=== PATIENT | male | born 1945 | race Caucasian/White ===

== ENCOUNTER 2018-10-18 14:51 | Inpatient (IN) | payer OTHER ==
[2018-10-18 16:08] VITALS: BMI 32.4
--- NOTE | 2018-10-18 16:55 | HP ---
COWS - Scale Resting Pulse: 0= [place] 80 or Below Sweatin=Flushed/Facial Moisture Restless Observation: 3= Extraneous Movement Pupil Size: 0= Normal to Room Light Bone or Joint Aches: 1= Mild Discomfort Runny Nose/ Eye Tearin= None GI Upset > 30mins: 2= Nausea/Diarrhea Tremor Observation: 0= None Yawning Observation: 0= None Anxiety or Irritability: 4=Extreme Anxiety Goose Flesh Skin: 0=Smooth Skin COWS Score: 12 CIWA Score Nausea/Vomitin Muscle Tremors: None Anxiety: 4-Mod. Anxious/Guarded Agitation: 4-Moderately Restless Paroxysmal Sweats: 1-Minimal Palms Moist Orientation: 0-Oriented Tacttile Disturbances: 0-None Auditory Disturbances: 0-None Visual Disturbances: 0-None Headache: 0-None Present CIWA-Ar Total Score: 12 - Admission Criteria OASAS Guidelines: Admission for Medically Managed Detox: Requires at least one of the followin. CIWA greater than 12 2. Seizures within the past 24 hours 3. Delirium tremens within the past 24 hours 4. Hallucinations within the past 24 hours 5. Acute intervention needed for co occurring medical disorder 6. Acute intervention needed for co occurring psychiatric disorder 7. Severe withdrawal that cannot be handled at a lower level of care (continued vomiting, continued diarrhea, abnormal vital signs) requiring intravenous medication and/or fluids 8. Admission ROS [facility] Allergies/Adverse Reactions: Allergies Allergy/AdvReac Type Severity Reaction Status Date / Time aripiprazole [From Abilify] Allergy Verified 10/18/18 17:58 atorvastatin [From Lipitor] Allergy Verified 10/18/18 17:58 duloxetine [From Cymbalta] Allergy Verified 10/18/18 17:58 History of Present Illness: Others' Prescriptions Patient Name: Trevor Álvarez Date: 1945 Address: [address] [place] [address] Sex: Male Rx Written Rx Dispensed Drug Quantity Days Supply Prescriber Name 09/26/2018 09/26/2018 virtussin ac liquid 120ml 3 Tenzin Plascencia MD 09/13/2018 09/13/2018 alprazolam 1 mg tablet 120 30 Tenzin Plascencia MD 09/13/2018 09/13/2018 oxycodone-acetaminophen 10-325 mg tab 120 30 TemoTenzin MD 08/12/2018 08/12/2018 oxycodone-acetaminophen 10-325 mg tab 120 30 Temo, Tenzin Colón MD 08/12/2018 08/12/2018 alprazolam 1 mg tablet 120 30 Temo, Tenzin Colón MD 08/12/2018 08/12/2018 virtussin ac liquid 120ml 10 Temo, Tenzin Colón MD 07/15/2018 07/15/2018 alprazolam 1 mg tablet 120 30 Temo, Tenzin Colón MD 07/15/2018 07/15/2018 oxycodone-acetaminophen 10-325 mg tab 120 30 Temo, Tenzin Colón MD 06/13/2018 06/14/2018 alprazolam 1 mg tablet 120 30 Temo, Tenzin Colón MD 06/13/2018 06/14/2018 oxycodone-acetaminophen 10-325 mg tab 120 30 TemoTenzin MD 04/11/2018 04/11/2018 oxycodone-acetaminophen 10-325 mg tab 120 30 TemoTenzin MD 04/11/2018 04/11/2018 alprazolam 1 mg tablet 120 30 TemoTenzin MD 03/07/2018 03/07/2018 alprazolam 1 mg tablet 120 30 TemoTenzin MD 03/07/2018 03/07/2018 oxycodone-acetaminophen 10-325 mg tab 120 30 TemoTenzin MD 02/05/2018 02/05/2018 alprazolam 1 mg tablet 120 30 TemoTenzin MD 02/05/2018 02/05/2018 oxycodone-acetaminophen 10-325 mg tab 120 30 TemoTenzin MD 12/27/2017 12/28/2017 oxycodone-acetaminophen 10-325 mg tab 120 30 TemoTenzin MD 12/27/2017 12/28/2017 alprazolam 1 mg tablet 120 30 TemoTenzin MD 11/19/2017 11/20/2017 alprazolam 1 mg tablet 120 30 TemoTenzin MD 11/19/2017 11/20/2017 oxycodone-acetaminophen 10-325 mg tab 120 30 TemoTenzin MD 11/07/2017 11/10/2017 alprazolam 1 mg tablet 60 30 Adore White MD 10/25/2017 10/26/2017 oxycodone-acetaminophen 5-325 mg tab 10 3 Ryan Jamison MD * - Drugs marked with an asterisk are compound drugs. If the compound drug is made up of more than one controlled substance, then each controlled pt here requesting detox from rx meds , reports once or twice took extra meds , wants to stop taking , has been taking meds x 18 years , brought letter from PMD , pt states if not taking meds x 4-5 hours starts feeling withdrawal symptoms , latest use this morning 1 xanax and 1 oxycodone " they're all just about out " . tobacco : 1 ppd PMHX ; cardiac stenting 15 years ago on ASA 81 mg qd , hld , asthma , " fluctuating " BP , was taking metformin 15 years ago , currently diet- controlled DM . PSHx : as above , hemorrhoidectomy , tonsillectomy psych : depression after of mother 18 years ago , was at [facility] , denies current SI / HI SHx : lives alone , retired assistant infant toddler teacher . Exam Limitations: No Limitations - Ebola screening Have you traveled outside of the country in the last 21 days: No Have you had contact with anyone from an Ebola affected area: No Do you have a fever: No - Review of Systems Constitutional: See HPI EENT: reports: Other (denies vision problems) Respiratory: reports: Shortness of Breath Cardiac: reports: No Symptoms Reported GI: reports: See HPI : reports: Other (weak stream , tried meds no relief) Musculoskeletal: reports: No Symptoms Reported Integumentary: reports: No Symptoms Reported Neuro: reports: See HPI Endocrine: reports: See HPI Psychiatric: reports: Orientated x3, Agitated, Anxious, other (inappropriate w / health underwriter) Patient History - Smoking Cessation Smoking history: Current every day smoker Have you smoked in the past 12 months: Yes Initiated information on smoking cessation: No - Substances abused Alprazolam (Xanax) Substance route: Oral Frequency: Daily Amount used: 4MG Age of first use: 56 Date of last use: 10/18/18 Other Other (specify): OXYCODONE 10/325 Substance route: Oral Frequency: Daily Amount used: 4- TABLETS Age of first use: 56 Date of last use: 10/18/18 Family Disease History - Family Disease History Family Disease History: Diabetes: Mother (d. CHF 80 ), Other: Father (d. 85 [address] ), Mother, Brother (2 , A & W , " really obese " ) Other Family History: no children Admission Physical Exam BHS - Vital Signs Vital Signs: Vital Signs - 24 hr 10/18/18 10/18/18 15:45 16:38 Temperature 98.1 F 98.1 F Respiratory 61 H 61 H Rate Blood Pressure 170/77 170/77 - Physical General Appearance: Yes: Moderate Distress, Anxious HEENTM: Yes: EOMI, Normocephalic, Normal Voice Respiratory: Yes: Chest Non-Tender, Lungs Clear, Normal Breath Sounds, No Respiratory Distress, No Accessory Muscle Use Neck: Yes: No masses,lesions,Nodules, Trachea in good position Cardiology: Yes: Regular Rhythm, Regular Rate, S1, S2 Abdominal: Yes: Non Tender, Soft Musculoskeletal: Yes: Gait Steady Extremities: Yes: Normal Range of Motion Neurological: Yes: Alert, Motor Strength 5/5 Integumentary: Yes: Warm - Diagnostic (1) Opioid dependence Current Visit: Yes Status: Acute Qualifiers: Substance use status: uncomplicated Qualified Code(s): F11.20 - Opioid dependence, uncomplicated (2) Sedative hypnotic or anxiolytic dependence Current Visit: Yes Status: Acute (3) Nicotine dependence Current Visit: Yes Status: Acute Breathalyzer - Breathalyzer Breathalyzer: 0 Urine Drug Screen - Test Device Lot number: [id number] Expiration date: 07/11/20 - Control Is test valid?: Yes - Results Drug screen NEGATIVE: No Urine drug screen results: OXY-Oxycodone, BZO-Benzodiazepines Inpatient Rehab Admission - Rehab Decision to Admit Inpatient rehab admission?: No
[2018-10-18] MEDS ORDERED: NICOTINE POLACRILEX 2 MG GUM BUC PRN (17:07)
[2018-10-18] MEDS ORDERED: BISMUTH SUBSALICYLATE 524 MG/30 ML UD PO PRN (17:07)
[2018-10-18] MEDS ORDERED: MAGNESIUM HYDROX 2400MG/30ML ORAL SUSPENSION 30 ML CUP PO PRN (17:07)
[2018-10-18] MEDS ORDERED: ACETAMINOPHEN 325 MG TABLET (FP) PO PRN ×2 (17:07)
[2018-10-18] MEDS ORDERED: MENTHOL/PHENOL 1 EACH UD MM PRN (17:07)
[2018-10-18] MEDS ORDERED: MAG HYDROX/AL HYDROX/SIMETH 30 ML UNIT-DOSE CUP PO PRN (17:07)
[2018-10-18] MEDS ORDERED: IBUPROFEN 400 MG TABLET (FP) PO PRN (17:07)
[2018-10-18] MEDS ORDERED: MAGNESIUM CITRATE 300 ML BOTTLE PO PRN (17:07)
[2018-10-18] MEDS: chlordiazePOXIDE HCL 10 MG CAPSULE PO PRN (19:00)
[2018-10-18] MEDS: ASPIRIN 81 MG CHEWABLE TABLETS PO SCH (19:00)
[2018-10-18] MEDS: LISINOPRIL 10 MG TABLET (FP) PO SCH (19:00)
[2018-10-18] MEDS: ATENOLOL 25 MG TABLET (FP) PO SCH (19:07)
[2018-10-18] MEDS: THIAMINE HCL 100 MG TABLET (FP) PO SCH (21:58)
[2018-10-18] MEDS: traZODone HCL 50 MG TABLET (FP) PO SCH (21:58)
[2018-10-18] MEDS: chlordiazePOXIDE HCL 25 MG CAPSULE PO SCH (22:00)
[2018-10-18] MEDS: ROSUVASTATIN CA 10 MG TABLET (FP) PO SCH (22:34)
[2018-10-18] MEDS ORDERED: METHADONE HCL 10 MG TABLET (FOR DETOX USE ONLY) PO ONE (23:00)
[2018-10-19] MEDS ORDERED: ONDANSETRON *ODT* 4 MG TABLET SL ONE (02:45)
--- NOTE | 2018-10-19 02:46 | PN ---
[facility] Progress Note Note: Patient complained of nausea. Denies vomiting at this time Vital Signs Temperature 96.0 F L 10/18/18 21:49 Pulse Rate 59 L 10/18/18 21:49 Respiratory Rate 18 10/18/18 21:49 Blood Pressure 154/73 10/18/18 21:49 O2 Sat by Pulse Oximetry (%) Action: Zofran 4mg sublingual ordered
[2018-10-19] MEDS: chlordiazePOXIDE HCL 25 MG CAPSULE PO SCH ×2 (06:02→14:31)
[2018-10-19] MEDS ORDERED: METHADONE HCL 5 MG TABLET (FOR DETOX USE ONLY) PO ONE (10:00)
[2018-10-19] MEDS: ASPIRIN 81 MG CHEWABLE TABLETS PO SCH (11:36)
[2018-10-19] MEDS: PRENATAL VITAMINS W/ FOLIC ACID TABLET (FP) PO SCH (11:36)
[2018-10-19] MEDS: ATENOLOL 25 MG TABLET (FP) PO SCH (11:36)
[2018-10-19] MEDS: LISINOPRIL 10 MG TABLET (FP) PO SCH (11:36)
[2018-10-19 11:40] LABS: HEMATOCRIT 46.2 % (35.4-49); HEMOGLOBIN 15.2 GM/dL (11.7-16.9); MCHC 32.9 g/dl (32.0-35.9); MEAN CELL VOLUME 88.3 fl (80-96); MEAN PLT VOLUME 9.4 fl (7.5-11.1); PLATELET COUNT 147 K/MM3 (134-434); RBC 5.23 M/mm3 (4.00-5.60); RDW 15.4 % (11.9-15.9); WHITE BLOOD COUNT 6.9 K/mm3 (4.0-10.0)
[2018-10-19 11:42] LABS: ALBUMIN 3.9 g/dl (3.4-5.0); BILIRUBIN,TOTAL 0.9 mg/dL (0.2-1); CALCIUM 9.1 mg/dL (8.5-10.1); POTASSIUM 4.1 mmol/L (3.5-5.1); TOT PROT 6.9 g/dl (6.4-8.2)
[2018-10-19] MEDS ORDERED: ONDANSETRON *ODT* 4 MG TABLET SL PRN (11:57)
[2018-10-19] MEDS: ALBUTEROL SO4 8 GM HFA INHALER IH PRN ×2 (14:52→21:34)
--- NOTE | 2018-10-19 18:08 | PN ---
S CIWA - CIWA Score Nausea/Vomitin Muscle Tremors: None Anxiety: 4-Mod. Anxious/Guarded Agitation: 2 Paroxysmal Sweats: No Perspiration Orientation: 0-Oriented Tacttile Disturbances: 2-Mild Itch/Numbness/Burn Auditory Disturbances: 2-Mild Harshness/Frighten Visual Disturbances: 1-Very Mild Sensitivity Headache: 0-None Present CIWA-Ar Total Score: 14 BHS COWS - Scale Resting Pulse: 0= [place] 80 or Below Sweatin= No chills or Flushing Restless Observation: 1= Difficult to Sit Still Pupil Size: 0= Normal to Room Light Bone or Joint Aches: 0= None Runny Nose/ Eye Tearin= None GI Upset > 30mins: 2= Nausea/Diarrhea Tremor Observation of Outstretched Hands: 0= None Yawning Observation: 1= 1-2x During Session Anxiety or Irritability: 2=Irritable/Anxious Goose Flesh Skin: 3=Piloerection COWS Score: 9 BHS Progress Note (SOAP) Subjective: Stomach Cramping, Nausea, Diarrhea, interrupted sleep, Anxious, Restless. Objective: PATIENT A & O X 3, OBSERVED AMBULATING ON UNIT UNASSISTED. IN NO ACUTE DISTRESS. 10/19/18 18:06 Vital Signs Temperature 97.6 F 10/19/18 16:05 Pulse Rate 49 L 10/19/18 16:05 Respiratory Rate 20 10/19/18 16:05 Blood Pressure 131/62 10/19/18 16:05 O2 Sat by Pulse Oximetry (%) Laboratory Tests 10/19/18 10/19/18 10/19/18 08:00 08:00 08:51 WBC 6.9 RBC 5.23 Hgb 15.2 Hct 46.2 MCV 88.3 MCH 29.0 MCHC 32.9 RDW 15.4 Plt Count 147 MPV 9.4 Sodium 140 Potassium 4.1 Chloride 106 Carbon Dioxide 26 Anion Gap 7 L BUN 25 H Creatinine 1.0 Est GFR (CKD-EPI)AfAm 86.76 Est GFR (CKD-EPI)NonAf 74.86 Random Glucose 147 H Calcium 9.1 Total Bilirubin 0.9 AST 26 ALT 34 Alkaline Phosphatase 67 Total Protein 6.9 Albumin 3.9 RPR Titer Nonreactive LABS NOTED. Assessment: 10/19/18 18:06 WITHDRAWAL SYMPTOMS. HYPERGLYCEMIA. Plan: CONTINUE DETOX. INCREASE DAILY PO FLUID / WATER INTAKE. PRN ZOFRAN SL FOR NAUSEA. PRN PEPTO-BISMOL PO FOR DIARRHEA. BGM ACBK FOR ELEVATED ADMISSION RANDOM GLUCOSE LEVEL.
--- NOTE | 2018-10-19 18:41 | CONSULT ---
[facility] Psychiatric Consult - Data Date of interview: 10/19/18 Admission source: [facility] Identifying data: First admission to [facility] [place] for this 73 y/o male self-referred for detoxification (opioid, benzodiazepine). Examined at [address] [place] [address]. Patient is single without dependents, domiciled, unemployed and supported on a pension (worked as a call or contact centre coach). Substance Abuse History: Discussed with patient. He confirms current [facility] report on his addictions as accurate. Details as follows : Smoking history: Current every day smoker. Have you smoked in the past 12 months: Yes. Initiated information on smoking cessation: No. Substances abused. Alprazolam (Xanax). Substance route: Oral. Frequency: Daily. Amount used: 4MG. Age of first use: 56. Date of last use: 10/18/18. Other. Other (specify): OXYCODONE 325. Substance route: Oral. Frequency: Daily. Amount used: 4- TABLETS. Age of first use: 56. Date of last use: 10/18/18 Medical History: Remarkable for chronic lumbar pain, bronchial asthma, hemorrhoids, history of cardiac stenting (15 years ago), hypertension, diabetes mellitus, dyslipidemia and a remote history of tonsillectomy. Psychiatric History: Patient endorses a history of two psychiatric hospitalizations ([facility]). Diagnosed with MDD + Anxiety Disorder. Mr Álvarez reports non-adherence to OPD care. Dropped out of treatment at the [facility] OPD clinic. Patient is no longer seeing a psychiatrist. He gets refills (zoloft 100 mg/day + xanax 1 mg/qid + trazodone 50 mg/hs confirmed by review of pharmacy activity at [facility] on 10/07/18) from his primary physician. Denies history of suicide attempts. Physical/Sexual Abuse/Trauma History: Patient denies. Additional Comment: Urine drug screen results: OXY-Oxycodone, BZO- Benzodiazepines. Noted. Mental Status Exam - Mental Status Exam Alert and Oriented to: Time, Place, Person Cognitive Function: Good Patient Appearance: Well Groomed Mood: Nervous, Apprehensive Affect: Appropriate, Mood Congruent, Normal Range Patient Behavior: Fatigued, Appropriate, Cooperative Speech Pattern: Clear, Appropriate Voice Loudness: Normal Thought Process: Goal Oriented Thought Disorder: Not Present Hallucinations: Denies Suicidal Ideation: Denies Homicidal Ideation: Denies Insight/Judgement: Poor Sleep: Fair Appetite: Good Muscle strength/Tone: Normal Gait/Station: Normal Psychiatric Findings - Problem List ([place] 1, 2,3) (1) Opioid dependence Current Visit: Yes Status: Chronic Qualifiers: Substance use status: uncomplicated Qualified Code(s): F11.20 - Opioid dependence, uncomplicated (2) Sedative hypnotic or anxiolytic dependence Current Visit: Yes Status: Chronic (3) Nicotine dependence Current Visit: Yes Status: Chronic (4) Substance induced mood disorder Current Visit: Yes Status: Chronic (5) History of depression Current Visit: Yes Status: Chronic (6) Insomnia Current Visit: Yes Status: Chronic (7) Non-compliance Current Visit: Yes Status: Chronic - Initial Treatment Plan Initial Treatment Plan: Psychoeducation. Sleep hygiene. Detoxification. AA/NA meetings. Resumed : trazodone 50 mg po hs + zoloft 50 mg po daily. Side effects/ benefits of both drugs are discussed with the patient. Made aware of potential for priapism. Verbal consent given to MD. Paredes.
[2018-10-19] MEDS: ROSUVASTATIN CA 10 MG TABLET (FP) PO SCH (21:33)
[2018-10-19] MEDS: chlordiazePOXIDE 5 MG CAPSULE PO SCH (21:33)
[2018-10-19] MEDS: THIAMINE HCL 100 MG TABLET (FP) PO SCH (21:34)
[2018-10-19] MEDS: traZODone HCL 50 MG TABLET (FP) PO SCH (21:34)
[2018-10-19] MEDS: MELATONIN 5 MG TABLETS PO PRN (22:51)
[2018-10-20] MEDS: chlordiazePOXIDE 5 MG CAPSULE PO SCH ×2 (06:08→14:14)
[2018-10-20] MEDS: ALBUTEROL SO4 8 GM HFA INHALER IH PRN ×2 (06:52→14:22)
[2018-10-20] MEDS ORDERED: METHADONE HCL 10 MG TABLET (FOR DETOX USE ONLY) PO ONE (10:00)
[2018-10-20] MEDS: ASPIRIN 81 MG CHEWABLE TABLETS PO SCH (10:13)
[2018-10-20] MEDS: PRENATAL VITAMINS W/ FOLIC ACID TABLET (FP) PO SCH (10:14)
[2018-10-20] MEDS: LISINOPRIL 10 MG TABLET (FP) PO SCH ×2 (10:14→21:40)
[2018-10-20] MEDS: SERTRALINE HCL 50 MG TABLET (FP) PO SCH (10:14)
[2018-10-20] MEDS: ATENOLOL 25 MG TABLET (FP) PO SCH (10:17)
[2018-10-20] MEDS ORDERED: ATENOLOL 50 MG TABLET (FP) PO SCH (14:20)
[2018-10-20] MEDS: amLODIPine BESYLATE 10 MG TABLET (FP) PO SCH (14:24)
[2018-10-20] MEDS ORDERED: amLODIPine BESYLATE 10 MG TABLET (FP) PO SCH (14:30)
--- NOTE | 2018-10-20 14:53 | PN ---
[facility] CIWA - CIWA Score Nausea/Vomitin-Mild Nausea/No Vomiting Muscle Tremors: 3 Anxiety: 2 Agitation: 2 Paroxysmal Sweats: 1-Minimal Palms Moist Orientation: 1-Uncertain about Date Tacttile Disturbances: 0-None Auditory Disturbances: 0-None Visual Disturbances: 0-None Headache: 1-Very Mild CIWA-Ar Total Score: 11 S COWS - Scale Resting Pulse: 0= [place] 80 or Below Sweatin= Chills/Flushing Restless Observation: 0= Sits Still Pupil Size: 0= Normal to Room Light Bone or Joint Aches: 1= Mild Discomfort Runny Nose/ Eye Tearin= Nasal Congestion GI Upset > 30mins: 1= Stomach Cramp Tremor Observation of Outstretched Hands: 1= Tremor [place], Not Seen Yawning Observation: 1= 1-2x During Session Anxiety or Irritability: 1=Feels Anxious/Irritable Goose Flesh Skin: 0=Smooth Skin COWS Score: 7 [facility] Progress Note (SOAP) Subjective: patient is taking xanax 1 mg po qid and oxy po qid patient wants to return to his provider for medical and mental issues Objective: 10/20/18 14:52 Vital Signs Temperature 97.8 F 10/20/18 14:06 Pulse Rate 51 L 10/20/18 14:06 Respiratory Rate 18 10/20/18 14:06 Blood Pressure 180/64 H 10/20/18 14:06 O2 Sat by Pulse Oximetry (%) Laboratory Last Values WBC 6.9 K/mm3 (4.0-10.0) 10/19/18 08:51 RBC 5.23 M/mm3 (4.00-5.60) 10/19/18 08:51 Hgb 15.2 GM/dL (11.7-16.9) 10/19/18 08:51 Hct 46.2 % (35.4-49) 10/19/18 08:51 MCV 88.3 fl (80-96) 10/19/18 08:51 MCH 29.0 pg (25.7-33.7) 10/19/18 08:51 MCHC 32.9 g/dl (32.0-35.9) 10/19/18 08:51 RDW 15.4 % (11.9-15.9) 10/19/18 08:51 Plt Count 147 K/MM3 (134-434) 10/19/18 08:51 MPV 9.4 fl (7.5-11.1) 10/19/18 08:51 Sodium 140 mmol/L (136-145) 10/19/18 08:00 Potassium 4.1 mmol/L (3.5-5.1) 10/19/18 08:00 Chloride 106 mmol/L (98-107) 10/19/18 08:00 Carbon Dioxide 26 mmol/L (21-32) 10/19/18 08:00 Anion Gap 7 MMOL/L (8-16) L 10/19/18 08:00 BUN 25 mg/dL (7-18) H 10/19/18 08:00 Creatinine 1.0 mg/dL (0.55-1.3) 10/19/18 08:00 Est GFR (CKD-EPI)AfAm 86.76 10/19/18 08:00 Est GFR (CKD-EPI)NonAf 74.86 10/19/18 08:00 POC Glucometer 134 UNITS (80-120) 10/20/18 06:44 Random Glucose 147 mg/dL (74-106) H 10/19/18 08:00 Calcium 9.1 mg/dL (8.5-10.1) 10/19/18 08:00 Total Bilirubin 0.9 mg/dL (0.2-1) 10/19/18 08:00 AST 26 U/L (15-37) 10/19/18 08:00 ALT 34 U/L (13-61) 10/19/18 08:00 Alkaline Phosphatase 67 U/L (45-117) 10/19/18 08:00 Total Protein 6.9 g/dl (6.4-8.2) 10/19/18 08:00 Albumin 3.9 g/dl (3.4-5.0) 10/19/18 08:00 RPR Titer Nonreactive (NONREACTIVE) 10/19/18 08:00 lab noted Assessment: 10/20/18 14:53 opiate and benzo withdrawal sx 10/20/18 14:53 hypertension 10/20/18 14:54 begin amlodipin 10 mg po daily increase lisinopril 10 mg po bid Plan: continue detox
[2018-10-20] MEDS: chlordiazePOXIDE HCL 10 MG CAPSULE PO PRN (19:58)
[2018-10-20] MEDS ORDERED: chlordiazePOXIDE HCL 10 MG CAPSULE PO PRN (21:00)
[2018-10-20] MEDS: chlordiazePOXIDE HCL 10 MG CAPSULE PO SCH (21:40)
[2018-10-20] MEDS: THIAMINE HCL 100 MG TABLET (FP) PO SCH (21:40)
[2018-10-20] MEDS: MELATONIN 5 MG TABLETS PO PRN (21:41)
[2018-10-20] MEDS: ROSUVASTATIN CA 10 MG TABLET (FP) PO SCH (22:27)
[2018-10-20] MEDS: traZODone HCL 50 MG TABLET (FP) PO SCH (22:27)
[2018-10-21] MEDS: ALBUTEROL SO4 8 GM HFA INHALER IH PRN ×2 (02:14→08:18)
[2018-10-21] MEDS: chlordiazePOXIDE HCL 10 MG CAPSULE PO SCH ×2 (05:49→13:15)
[2018-10-21] MEDS ORDERED: METHADONE HCL 5 MG TABLET (FOR DETOX USE ONLY) PO ONE (06:00)
[2018-10-21 09:11] VITALS: BP 154/60; PULSE 57; TEMP 98
[2018-10-21] MEDS: ASPIRIN 81 MG CHEWABLE TABLETS PO SCH (09:40)
[2018-10-21] MEDS: LISINOPRIL 10 MG TABLET (FP) PO SCH (09:40)
[2018-10-21] MEDS: PRENATAL VITAMINS W/ FOLIC ACID TABLET (FP) PO SCH (09:41)
[2018-10-21] MEDS: amLODIPine BESYLATE 10 MG TABLET (FP) PO SCH (09:41)
[2018-10-21] MEDS: SERTRALINE HCL 50 MG TABLET (FP) PO SCH (09:50)
--- NOTE | 2018-10-21 14:31 | DS ---
[facility] Detox Discharge Summary Admission Date: 10/18/18 Discharge Date: 10/21/18 - History Present History: Opioid Dependence, Sedative Dependence Additional Comments: 73 years old male admitted on 10/18/18 for benzo and opiate withdrawal stabilization completed detox regimen aftercare patient preferring to return to his xanax oxy provider follow up benzo and opiate detox Pertinent Past History: bring in medication list and lab report to follow up appointment - Physical Exam Results Vital Signs: Vital Signs Temperature 98.0 F 10/21/18 09:10 Pulse Rate 57 L 10/21/18 09:10 Respiratory Rate 18 10/21/18 09:10 Blood Pressure 154/60 10/21/18 09:10 O2 Sat by Pulse Oximetry (%) Pertinent Admission Physical Exam Findings: benzo and opiate withdrawal sx Laboratory Last Values WBC 6.9 K/mm3 (4.0-10.0) 10/19/18 08:51 RBC 5.23 M/mm3 (4.00-5.60) 10/19/18 08:51 Hgb 15.2 GM/dL (11.7-16.9) 10/19/18 08:51 Hct 46.2 % (35.4-49) 10/19/18 08:51 MCV 88.3 fl (80-96) 10/19/18 08:51 MCH 29.0 pg (25.7-33.7) 10/19/18 08:51 MCHC 32.9 g/dl (32.0-35.9) 10/19/18 08:51 RDW 15.4 % (11.9-15.9) 10/19/18 08:51 Plt Count 147 K/MM3 (134-434) 10/19/18 08:51 MPV 9.4 fl (7.5-11.1) 10/19/18 08:51 Sodium 140 mmol/L (136-145) 10/19/18 08:00 Potassium 4.1 mmol/L (3.5-5.1) 10/19/18 08:00 Chloride 106 mmol/L (98-107) 10/19/18 08:00 Carbon Dioxide 26 mmol/L (21-32) 10/19/18 08:00 Anion Gap 7 MMOL/L (8-16) L 10/19/18 08:00 BUN 25 mg/dL (7-18) H 10/19/18 08:00 Creatinine 1.0 mg/dL (0.55-1.3) 10/19/18 08:00 Est GFR (CKD-EPI)AfAm 86.76 10/19/18 08:00 Est GFR (CKD-EPI)NonAf 74.86 10/19/18 08:00 POC Glucometer 112 UNITS (80-120) 10/21/18 05:48 Random Glucose 147 mg/dL (74-106) H 10/19/18 08:00 Calcium 9.1 mg/dL (8.5-10.1) 10/19/18 08:00 Total Bilirubin 0.9 mg/dL (0.2-1) 10/19/18 08:00 AST 26 U/L (15-37) 10/19/18 08:00 ALT 34 U/L (13-61) 10/19/18 08:00 Alkaline Phosphatase 67 U/L (45-117) 10/19/18 08:00 Total Protein 6.9 g/dl (6.4-8.2) 10/19/18 08:00 Albumin 3.9 g/dl (3.4-5.0) 10/19/18 08:00 RPR Titer Nonreactive (NONREACTIVE) 10/19/18 08:00 lab noted - Treatment Hospital Course: Detox Protocol Followed, Detoxed Safely, Responded well, Discharged Condition Good, Rehab Referral Accepted Patient has Accepted a Rehab Referral to: [facility] - Medication Discharge Medications: Ambulatory Orders Albuterol Sulfate Inhaler - [Ventolin HFA Inhaler -] 1 - 2 inh PO Q4H PRN Aspirin [ASA -] 81 mg PO DAILY 10/18/18 Atenolol [Tenormin -] 25 mg PO DAILY 10/18/18 Lisinopril [Prinivil] 10 mg PO BID 10/18/18 Rosuvastatin [Crestor -] 10 mg PO DAILY 10/18/18 Sertraline HCl 100 mg PO DAILY 10/18/18 traZODone HCL [Desyrel -] 50 mg PO HS 10/18/18 - Diagnosis (1) Uncomplicated opioid dependence Current Visit: Yes Status: Acute (2) Nicotine dependence Current Visit: Yes Status: Acute Qualifiers: Nicotine product type: cigarettes Substance use status: in withdrawal Qualified Code(s): F17.213 - Nicotine dependence, cigarettes, with withdrawal (3) Sedative hypnotic or anxiolytic dependence Current Visit: Yes Status: Acute (4) Substance induced mood disorder Current Visit: Yes Status: Suspected - AMA Did Patient Leave Against Medical Advice: No
[2018-10-22] MEDS ORDERED: ATENOLOL 25 MG TABLET (FP) PO SCH (10:00)
== END 2018-10-21 13:25 | disposition home or self-care (01) | DRG 897 ==
LOC: YASAS 14:51 → Y3N 18:08
PROVIDERS: ADMIT Surgery; ATTEND Surgery
PROC: HZ2ZZZZ Detoxification Services for Substance Abuse Treatment (ICD-10-PCS; principal; 2018-10-18)
DX: F11.23 Opioid dependence with withdrawal (principal); F13.230 Sedative, hypnotic or anxiolytic dependence with withdrawal, uncomplicated; F17.213 Nicotine dependence, cigarettes, with withdrawal; F19.24 Other psychoactive substance dependence with psychoactive substance-induced mood disorder; I10 Essential (primary) hypertension; E11.65 Type 2 diabetes mellitus with hyperglycemia; G47.00 Insomnia, unspecified; E78.5 Hyperlipidemia, unspecified; J45.909 Unspecified asthma, uncomplicated; Z79.82 Long term (current) use of aspirin; Z79.84 Long term (current) use of oral hypoglycemic drugs; Z91.19 Patient's noncompliance with other medical treatment and regimen; Z95.5 Presence of coronary angioplasty implant and graft; Z88.8 Allergy status to other drugs, medicaments and biological substances
CPT/HCPCS: 36415; 80053; 82962; 85027; 86593; Q0162